=== PATIENT | female | born 1980 | race Asian ===

== ENCOUNTER 2019-02-12 16:08 | Emergency (ER) | payer MEDICAID ==
[~2019-02-12] VITALS: Ht 149.9 cm; Wt 71.1 kg
[2019-02-12 17:32] VITALS: BP 125/73
== END 2019-02-12 17:33 | disposition home or self-care (01) ==
LOC: ER 16:09
DX: L30.9 Dermatitis, unspecified (principal)
CPT/HCPCS: 99281